=== PATIENT | male | born 1985 | race Asian ===

== ENCOUNTER → 2017-04-10 | Emergency (ER) | payer BC ==
[~2017-04-10] VITALS: Ht 175.3 cm; Wt 83.9 kg
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
[2017-04-10 08:46] VITALS: BP 134/77
--- NOTE | 2017-04-10 08:47 | NUR ---
Patient discharged to home in stable condition. Written and verbal after care instructions given. Patient verbalizes understanding of instruction.
== END | disposition home or self-care (01) ==
LOC: EDUNIT# 07:41 → ER 07:42
DX: S93.402A Sprain of unspecified ligament of left ankle, initial encounter (principal); Z88.1 Allergy status to other antibiotic agents; Z98.890 Other specified postprocedural states; W18.39XA Other fall on same level, initial encounter; Y93.02 Activity, running; Y92.89 Other specified places as the place of occurrence of the external cause; Y99.9 Unspecified external cause status
CPT/HCPCS: 73610; 99284; A4606 ×2; Z7610 ×2